=== PATIENT | female | born 1960 | race Caucasian/White ===

== ENCOUNTER → 2016-04-11 | Outpatient (CLI) | payer BC ==
--- NOTE | 2016-04-11 19:02 | RADIOLOGY REPORT PS360 ---
SCAPULA-LT ORDERING PHYSICIAN : Winnie Causey APRN PATIENT AGE: 55 years GENDER: Female INDICATION: LT. SCAPULAR PAIN Pain at left scapula. TECHNIQUE: 2 views left scapula AP and oblique. COMPARISON: FINDINGS No discrete fracture evident. Scapula with normal contour. Underlying ribs intact. Limited views of left shoulder shows normal glenohumeral joint. Mild degenerative changes AC joint IMPRESSION: Left scapula intact.
--- NOTE | 2016-04-11 19:04 | RADIOLOGY REPORT PS360 ---
CHEST(2 VIEWS-NOT PORTABLE) ORDERING PHYSICIAN : Winnie Causey APRN PATIENT AGE: 55 years GENDER: Female INDICATION: PAIN OF LEFT SCAPULA Left chest pain with anterior chest pain and scapula pain TECHNIQUE: PA and lateral chest COMPARISON: left scapula from today but no previous chest film FINDINGS Lungs well expanded and clear with no active disease heart alise and mediastinal structures satisfactory chest wall unremarkable. T-spine, mild degenerative changes but T-spine intact overall. IMPRESSION: No active disease in the chest. Lungs clear. Nothing definite acute.
== END ==
LOC: RAD 11:38
DX: M89.8X1 Other specified disorders of bone, shoulder (principal)

== ENCOUNTER → 2016-11-10 | Outpatient (CLI) | payer BC ==
--- NOTE | 2016-11-15 07:55 | RADIOLOGY REPORT PS360 ---
MRI-LOW EXT ANY JOINT W/O-LT HISTORY: Left knee pain which is medial lateral and anterior, osteoarthritis LEFT KNEE PAIN ORDERING PHYSICIAN: MARGO Arora CHAR PATIENT AGE: 56 years COMPARISON: None TECHNIQUE: Standard multiplanar multiecho sequences are performed without contrast. FINDINGS: The cruciate ligaments, collateral ligaments, patellar tendon, and quadriceps tendon appear intact. There is some nonspecific slight increased T1 and T2 signal involving the patellar tendon suggesting tendinopathy/tendinosis. There is may be a small radial tear involving the posterior horn of the lateral meniscus. A small knee joint effusion is present. There are mild osteoarthritic changes involving all 3 compartments. There is thinning of the patellar cartilage with irregularity of the posterior surface of the patellar cartilage along with some decreased T1 increased T2 signal involving the patella superiorly and posteriorly consistent with osteochondrosis. There is a small Bowman cyst measuring 3 cm cephalad to caudad and 0.6 cm AP IMPRESSION: 1. Suspected nondisplaced radial tear of the posterior horn of the lateral meniscus. 2. 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 Mild osteoarthritic changes with small knee joint effusion
== END ==
LOC: RAD 14:53
DX: M25.562 Pain in left knee (principal)

== ENCOUNTER → 2017-02-13 | Outpatient (CLI) | payer BC ==
--- NOTE | 2017-02-16 14:13 | RADIOLOGY REPORT PS360 ---
DIG MAMM-SCREEN CHRIS W/CAD ORDERING PHYSICIAN : JERAMY BAUMANN APRN PATIENT AGE: 56 years GENDER: Female COMPARISON: January 2015 portable January 2015, February HISTORY:56-year-old. Taking control pills. No new complaints Family history breast cancer: maternal cousin premenopausal. Paternal cousin postmenopausal TECHNIQUE: Std CC & MLO images were obtained. R2 CAD reviewed. FINDINGS: No dominant mass nor suspicious calcifications either breast. Minimal scattered areas of minor density is been seen previously dating back to 2014 and prior no significant new areas of concern. Bilateral follow-up in one year adequate. And encouraged. IMPRESSION: Stable mammogram. No prominent findings. No significant new areas of concern Follow-up one year adequate moderate breast density . BI-RADS CATEGORY: 2_Benign RECOMMENDED FOLLOWUP: 12M 12 MONTH FOLLOW-UP (A letter has been sent to the patient regarding results of the study.)
== END ==
LOC: RAD 15:46
DX: Z12.39 Encounter for other screening for malignant neoplasm of breast (principal)
CPT/HCPCS: G0202